=== PATIENT | male | born 1990 | race African-American/Black ===

== ENCOUNTER 2023-08-29 03:57 | Emergency (ER) | payer MEDICAID ==
[~2023-08-29] VITALS: Ht 193 cm; Wt 72.6 kg
[2023-08-29 04:14] VITALS: BP_SYST 119; PULSE 75; RESP 16; TEMP 97.9; O2SAT 99
[2023-08-29] MEDS ORDERED: IBUP-1971 PO (07:03)
[2023-08-29] MEDS ORDERED: TRAM50TA2 PO (07:03)
[2023-08-29 07:19] VITALS: BP_SYST 117; PULSE 70; RESP 16; TEMP 97.9; O2SAT 99
== END 2023-08-29 07:19 | disposition home or self-care (01) ==
LOC: SED 03:57
DX: S70.02XA Contusion of left hip, initial encounter (principal); Z79.899 Other long term (current) drug therapy; Y30.XXXA Falling, jumping or pushed from a high place, undetermined intent, initial encounter; Y93.39 Activity, other involving climbing, rappelling and jumping off; Y92.89 Other specified places as the place of occurrence of the external cause; Y99.8 Other external cause status
CPT/HCPCS: 73502; 99283